=== PATIENT | male | born 1950 | race Caucasian/White ===

== ENCOUNTER 2022-10-29 15:31 | Outpatient (CLI) | payer MEDICARE, MEDICAID | END 2022-10-29 23:59 | disposition critical access hospital (66) | LOC: EMS 15:31 | DX: R62.7 Adult failure to thrive (principal); H54.7 Unspecified visual loss; Z59.1 Inadequate housing; Z60.2 Problems related to living alone | CPT/HCPCS: A0425; A0429 ==

== ENCOUNTER 2022-10-29 15:32 | Emergency (ER) | payer MEDICARE, MEDICAID ==
[2022-10-29 15:44] VITALS: BP 155/86
--- NOTE | 2022-10-29 15:45 | ED Physician Documentation ---
History of Present Illness - Stated complaint Stated Complaint: COLD - Chief complaint Chief Complaint: Exposure - History obtained from History obtained from: Patient, EMS - Additonal information Additional information: He spent the whole night outside and now feels generally sore just from laying on the ground and then he tried to get up an embankment. He has multiple scrapes all over from Ayana's and what not. Otherwise he has no complaints. Prehospital vital signs were unremarkable. PD PAST MEDICAL HISTORY - Present Medications Home Medications: Ambulatory Orders Medication Instructions Recorded Confirmed Cyclobenzaprine [Flexeril] 10 mg PO TID PRN #10 tablet 10/29/22 PD ED PE NORMAL - Vitals Vital signs reviewed: Yes (Mildly hypothermic) - General General: Alert and oriented X 3, No acute distress, Well developed/nourished - HEENT HEENT: Other (Edentulous) - Neck Neck: Supple, no meningeal sign, No bony TTP - Cardiac Cardiac: RRR, No murmur - Respiratory Respiratory: No respiratory distress, Clear bilaterally - Abdomen Abdomen: Non tender - Back Back: No CVA TTP, No spinal TTP - Derm Derm: Normal color, Warm and dry - Extremities Extremities: Other (Dupuytren's contractures of the left hand) - Neuro Neuro: Alert and oriented X 3, Normal speech Results - Vitals Vitals: Vital Signs - 24 hr 10/29/22 10/29/22 15:34 17:10 Temperature 34.8 C L 36.2 C L Heart Rate 72 Respiratory 16 Rate Blood Pressure 155/86 H O2 Saturation 98 PD Medical Decision Making - ED course ED course: 72-year-old gentleman with mild hypothermia presents by ambulance. His temperature normalized here and subsequently he was evaluated by social work and he wanted to go home. He has appropriate follow-up. Departure - Departure Disposition: Home, Self Care Clinical Impression: Hypothermia Condition: Good Record reviewed to determine appropriate education?: Yes Instructions: ED Hypothermia Tx Prescriptions: Cyclobenzaprine [Flexeril] 10 mg PO TID PRN #10 tablet PRN Reason: Spasms Comments: Follow-up with your social service coordinator on Saturday as scheduled. Return for new or worsening symptoms.
[2022-10-29] MEDS ORDERED: CYCLOBENZAPRINE 10 MG TABLET PO STA (17:22)
== END 2022-10-29 18:26 | disposition home or self-care (01) ==
LOC: EDUNIT# → ED 15:32
DX: T68.XXXA Hypothermia, initial encounter (principal)
CPT/HCPCS: 99283; 99284; A9270

== ENCOUNTER 2022-10-30 14:16 | Outpatient (CLI) | payer MEDICARE, MEDICAID | END 2022-10-30 23:59 | disposition critical access hospital (66) | LOC: EMS 14:16 | DX: R41.0 Disorientation, unspecified (principal); R53.1 Weakness; R62.7 Adult failure to thrive; Z59.48 Other specified lack of adequate food; Z59.1 Inadequate housing | CPT/HCPCS: A0425; A0429 ==

== ENCOUNTER 2022-10-30 14:45 | Observation (INO) | payer MEDICARE, MEDICAID ==
[2022-10-30] MEDS ORDERED: SODIUM CHLORIDE 0.9% 1,000 ML IV STA ×2 (15:48)
[2022-10-30 15:49] LABS: BASOPHILS # (AUTO) 0.1 10^3/uL (0.0-0.1); BASOPHILS % (AUTO) 0.7 %; EOSINOPHILS % (AUTO) 0.4 %; HCT - HEMATOCRIT 39.2 % (42.0-52.0); LYMPHOCYTES % (AUTO) 9.9 %; MEAN CORPUSCULAR HEMOGLOBIN 31.9 pg (27.0-31.0); MEAN CORPUSCULAR HGB CONC 33.2 g/dL (32.0-36.0); MEAN CORPUSCULAR VOLUME 96.3 fL (80.0-94.0); MONOCYTES # (AUTO) 1.2 10^3/uL (0.0-1.0); MONOCYTES % (AUTO) 11.3 %; NEUTROPHILS # (AUTO) 8.1 10^3/uL (1.5-6.6); NEUTROPHILS % (AUTO) 77.3 %; PLT - PLATELET COUNT 203 10^3/uL (130-450); RED BLOOD COUNT 4.07 10^6/uL (4.70-6.10); RED CELL DISTRIBUTION WIDTH 13.4 % (12.0-15.0); WHITE BLOOD COUNT 10.4 x10^3/uL (4.8-10.8)
--- NOTE | 2022-10-30 15:53 | ED Physician Documentation ---
History of Present Illness - Stated complaint Stated Complaint: FTT - Chief complaint Chief Complaint: General - History obtained from History obtained from: Patient, EMS, Caregiver - History of Present Illness Timing: Unknown Pain level max: 1 Pain level now: 1 - Additonal information Additional information: Patient is a 72-year-old male who lives at home. He apparently lives in an unheated shed and drinks from a Raquel bucket but states he has been doing this since 1984. He is legally blind and has a caregiver. He was found wandering outside yesterday and is mildly hypothermic. His caregiver dropped him off last night and when she returned to check on him today, found him on the ground with altered mental status. Review of Systems Constitutional: denies: Fever, Chills Nose: denies: Rhinorrhea / runny nose, Congestion Respiratory: denies: Cough GI: denies: Vomiting, Diarrhea Skin: denies: Rash Musculoskeletal: denies: Neck pain, Back pain Neurologic: denies: Headache PD PAST MEDICAL HISTORY - Past Medical History Past Medical History: No - Past Surgical History Past Surgical History: No - Present Medications Home Medications: Ambulatory Orders Medication Instructions Recorded Confirmed Cyclobenzaprine [Flexeril] 10 mg PO TID PRN #10 tablet 10/29/22 10/30/22 - Allergies Allergies/Adverse Reactions: Allergies Allergy/AdvReac Type Severity Reaction Status Date / Time No Known Drug Allergies Allergy Verified 10/30/22 15:05 - Living Situation Living Arrangement: reports: At home - Social History Does the pt have substance abuse?: No - Family History Family history: reports: Non contributory PD ED PE NORMAL - Vitals Vital signs reviewed: Yes - General General: No acute distress, Other (Alert, oriented to person only. Confused to time and place. He believes he is in [place]) - HEENT HEENT: Atraumatic, PERRL, EOMI, Moist mucous membranes - Neck Neck: Supple, no meningeal sign, No bony TTP - Cardiac Cardiac: RRR, Strong equal pulses - Respiratory Respiratory: No respiratory distress, Clear bilaterally - Abdomen Abdomen: Soft, Non tender, Non distended - Back Back: No CVA TTP, No spinal TTP - Derm Derm: Warm and dry - Extremities Extremities: Other (Abrasions to the bilateral hands, no signs of infection. Scaling to the bilateral feet, but no signs of infection.) - Neuro Neuro: bow stapler 2-12 intact, No motor deficit, No sensory deficit, Normal speech Eye Opening: Spontaneous Motor: Obeys Commands Verbal: Confused GCS Score: 14 - Psych Psych: Normal mood, Normal affect Results - Vitals Vitals: Vital Signs - 24 hr 10/30/22 10/30/22 10/30/22 15:06 15:44 17:10 Temperature 36.5 C Heart Rate 76 75 71 Respiratory 18 18 20 Rate Blood Pressure 150/100 H 151/71 H 162/82 H O2 Saturation 100 98 97 Oxygen O2 Source Room air - Labs Labs: Laboratory Tests 10/30/22 10/30/22 10/30/22 15:44 15:44 15:44 WBC 10.4 RBC 4.07 L Hgb 13.0 L Hct 39.2 L MCV 96.3 H MCH 31.9 H MCHC 33.2 RDW 13.4 Plt Count 203 MPV 11.0 Neut # (Auto) 8.1 H Lymph # (Auto) 1.0 L Carbon # (Auto) 1.2 H Eos # (Auto) 0.0 Baso # (Auto) 0.1 Absolute Nucleated RBC 0.00 Nucleated RBC % 0.0 Sodium 135 Potassium 3.9 Chloride 100 L Carbon Dioxide 21 Anion Gap 14.0 H BUN 36 H Creatinine 0.9 Estimated GFR (MDRD) 83 L Glucose 93 Calcium 9.6 Total Bilirubin 3.0 H AST 221 H ALT 59 Alkaline Phosphatase 45 Total Creatine Kinase Total Protein 7.5 Albumin 4.2 Globulin 3.3 Albumin/Globulin Ratio 1.3 Lipase 30 TSH 1.10 Salicylates < 6.0 Acetaminophen < 10 L Ethyl Alcohol < 5.0 SARS-CoV-2 (PCR) 10/30/22 10/30/22 15:44 15:50 WBC RBC Hgb Hct MCV MCH MCHC RDW Plt Count MPV Neut # (Auto) Lymph # (Auto) Carbon # (Auto) Eos # (Auto) Baso # (Auto) Absolute Nucleated RBC Nucleated RBC % Sodium Potassium Chloride Carbon Dioxide Anion Gap BUN Creatinine Estimated GFR (MDRD) Glucose Calcium Total Bilirubin AST ALT Alkaline Phosphatase Total Creatine Kinase 3387 H* Total Protein Albumin Globulin Albumin/Globulin Ratio Lipase TSH Salicylates Acetaminophen Ethyl Alcohol SARS-CoV-2 (PCR) NOT DETECTED - Rads (name of study) Head CT Radiology: Final report received, See rad report Cervical spine CT Radiology: Final report received, See rad report PD Medical Decision Making - ED course Complexity details: reviewed results, re-evaluated patient, considered differential, d/w patient, d/w road consultant ED course: 72-year-old male found down on the ground by his caregiver. CK of 3387. His CBC does not show any significant abnormalities other than mild anemia, hemoglobin 13.0. Chemistry reveals an elevated BUN to creatinine ratio, 36:0.9. Also mild elevation of his total bilirubin at 3.0 and mild AST elevation at 221. Urinalysis is consistent with dehydration. Positive ketones and concentrated urine. Tox screen is negative. COVID is negative. No acute findings on head CT or cervical spine CT. We will admit for rhabdomyolysis, altered mental status. Discussed the case with Dr. Weber, hospitalist who accepts. Social work was also consulted regarding his living situation. Departure - Departure Disposition: 66 [facility] DC/Xfer Clinical Impression: Metabolic encephalopathy, Legally blind Rhabdomyolysis Qualifiers: Rhabdomyolysis type: non-traumatic Qualified Code(s): M62.82 - Rhabdomyolysis AMS (altered mental status) Qualifiers: Altered mental status type: disorientation Qualified Code(s): R41.0 - Disorientation, unspecified Condition: Stable Discharge Date/Time: 10/30/22 18:04
[2022-10-30 16:10] LABS: ACETAMINOPHEN < 10 ug/mL (10-30); ALBUMIN 4.2 g/dL (3.2-5.5); ALBUMIN/GLOBULIN RATIO 1.3 (1.0-2.2); ALKALINE PHOSPHATASE 45 IU/L (42-121); ALT ALANINE AMINOTRANSFERASE 59 IU/L (10-60); AST ASPARTATE AMINOTRANSFERASE 221 IU/L (10-42); BUN - BLOOD UREA NITROGEN 36 mg/dL (6-20); CALCIUM 9.6 mg/dL (8.5-10.3); CARBON DIOXIDE - CO2 21 mmol/L (21-32); CHLORIDE 100 mmol/L (101-111); CREATININE 0.9 mg/dL (0.6-1.2); ETOH - ETHANOL < 5.0 mg/dL; GFR - MDRD 83 (>89); GLUCOSE 93 mg/dL (70-100); LIPASE 30 U/L (22-51); POTASSIUM 3.9 mmol/L (3.5-5.0); SALICYLATE < 6.0 mg/dL; SODIUM 135 mmol/L (135-145); TOTAL PROTEIN 7.5 g/dL (6.7-8.2)
--- NOTE | 2022-10-30 16:50 | CT Report ---
PROCEDURE: HEAD WO INDICATIONS: fall, poss head/neck inj TECHNIQUE: Noncontrast 4.5 mm thick angled axial sections acquired from the foramen magnum to the vertex. For r adiation dose reduction, the following was used: automated exposure control, adjustment of mA and/or kV according to patient size. COMPARISON: None. FINDINGS: Image quality: There is motion artifact CSF spaces: Basal cisterns are patent. Lateral ventricles are symmetric. Volume: Vascular calcifications. Periventricular white matter disease is commonly seen with chronic m icroangiopathy. Volume loss is present. These findings are moderate. Brain: No acute intracranial hemorrhage is identified. There may be a small area of encephalomalacia in the left cerebellum. No large area garcia-white loss otherwise. Craniofacial structures: No displaced fracture. Sinuses are clear. Orbits are intact. Partially seen sequelae of dental disease. IMPRESSION: No acute intracranial abnormality. Suspected chronic findings as above. If there is concern for paren chymal pathology, consider further evaluation with MRI. Reviewed by: Griffin Vidal MD on 10/30/2022 4:48 PM PST Approved by: Griffin Vidal MD on 10/30/2022 4:48 PM PST Station ID: [id number]
--- NOTE | 2022-10-30 16:52 | CT Report ---
PROCEDURE: CERVICAL SPINE WO INDICATIONS: fall, poss head/neck inj TECHNIQUE: Noncontrast 3 mm thick sections acquired from the skull base to the T4 level. Sagittal and coronal r eformats were then constructed. For radiation dose reduction, the following was used: automated exp osure control, adjustment of mA and/or kV according to patient size. COMPARISON: None. FINDINGS: Image quality: Good Bones: Mild to moderate degenerative changes. No traumatic malalignment. Vertebral body heights are w ell-maintained. Soft tissues: Normal prevertebral soft tissues. IMPRESSION: No acute fracture or traumatic subluxation of the cervical spine. Mild to moderate degenerative arzate es. If there is high concern for further derangement, consider MRI evaluation. Reviewed by: Griffin Vidal MD on 10/30/2022 4:51 PM PST Approved by: Griffin Vidal MD on 10/30/2022 4:51 PM PST Station ID: [id number]
[2022-10-30] MEDS ORDERED: ONDANSETRON 4 MG/2 ML VIAL IVP PRN (17:11)
[2022-10-30] MEDS ORDERED: ACETAMINOPHEN 325 MG TABLET PO PRN (17:11)
[2022-10-30] MEDS ORDERED: SODIUM CHLORIDE FLUSH 0.9% 10 ML SYRINGE IVP PRN (17:11)
--- NOTE | 2022-10-30 17:53 | HISTORY & PHYSICAL EXAMINATION ---
Chief Complaint - Chief Complaint Chief Complaint: Found down by caregiver History of Present Illness - Admitted From Admitted From:: ED - History Obtained From History obtained from: ED provider - History of Present Illness HPI Comment/Other: This is a 72-year-old male who has a history of being legally blind, he lives in a shack and drinks Raquel since 1984. He has a caregiver. Yesterday he was in the ER because of hypothermia down to 34.8. He was rewarmed and he was able to be discharged. He was taken home by the caregiver and dropped off. When the caregiver arrived this morning she found him on the ground and he was confused. He was brought in to the ED. Today he is not hypothermic. His vital signs are stable. He is confused, he thinks he is in [place] and that it is 2023. His labs came back showing CK 3380, mild pre-renal azotemia and his CT head and neck were scanned and no trauma or acute abnormality seen. Prior to this, [facility] taking him in for respite care. The ED provider reached out to me on the Hospitalist Team, and we discussed his case and his management. The patient will be placed in Observation status for treating rhabdomyolysis and mild volume depletion. We will also evaluate him for possible causes of syncope and altered mental status. Because the patient is confused, he cannot make medical decisions, therefore his CODE STATUS by default will be Full Code. History - Past Medical History Cardiovascular: reports: None Respiratory: reports: None Neuro: reports: Other (legally blind) Endocrine/Autoimmune: reports: None GI: reports: None : reports: None HEENT: reports: Other (edentulous) Psych: reports: None Musculoskeletal: reports: None Derm: reports: None - Past Surgical History Other past surgical history: Unknown - Family & Social History Living arrangement: At home Living Situation: Alone Social History Notes: He lives alone in a shack, unknown how he gets his heat. He reportedly drinks Raquel, unknown if he has plumbing or running water. H is history of cigarette use, alcohol use and illicit drug use is not known. - Substance History Use: Uses substance without health or social issues: Other (Unknown) Meds/Allgy - Home Medications Home Medications: Ambulatory Orders Medication Instructions Recorded Confirmed Cyclobenzaprine [Flexeril] 10 mg PO TID PRN #10 tablet 10/29/22 10/30/22 - Allergies Allergies/Adverse Reactions: Allergies Allergy/AdvReac Type Severity Reaction Status Date / Time No Known Drug Allergies Allergy Verified 10/30/22 15:05 Review of Systems - All Other Systems All Other Systems: reports: Other (Only information is as per HPI, the patient is too confused, does not give any details or sx complaints) Exam - Vital Signs Vital Signs: Vital Signs x48h Temp Pulse Resp BP Pulse Ox 10/30/22 17:10 71 20 162/82 H 97 10/30/22 15:44 75 18 151/71 H 98 10/30/22 15:06 36.5 C 76 18 150/100 H 100 - Physical Exam General Appearance: positive: No acute distress, Lethargic (He moves slightly when he is touched or by calling his name, does not awaken to communicate) Eyes Bilateral: positive: No lid inflammation ENT: positive: Dry mucous membranes, Other (edentulous) Neck: positive: Nml inspection Respiratory: positive: No respiratory distress, Breath sounds nml Cardiovascular: positive: Regular rate & rhythm, No murmur Abdomen: positive: Non-tender, Nml bowel sounds, No distention Skin: positive: Warm, Dry Extremities: positive: Non-tender, No pedal edema Neurologic/Psychiatric: positive: Other (Obtunded, moves all extrem spontaneously. Is legally blind.) Conclusion/Plan - Problem List (1) Rhabdomyolysis Conclusion/Plan: Related to being found down on the ground. Unknown details. Plan: IV saline hydration Follow CK daily to assure decreasing Will you evaluate for causes of syncope: Check orthostatic vital signs, monitor on telemetry Qualifiers: Rhabdomyolysis type: non-traumatic Qualified Code(s): M62.82 - Rhabdomyolysis (2) AMS (altered mental status) Conclusion/Plan: Cause for his confusion could be drowsiness from sleep meds (he told his RN he takes Tylenol PM every night), or from hypotension and hypoperfusion caused by dehydration. There does not seem to be an infection as the cause of his confusion It does not appear to be related to illicit drugs since his drug screen was negative Plan: Follow clinically, adjusting management as needed No sleeping meds, he is already too sleepy and sleepiness could be why he fell at home and could not get up Qualifiers: Altered mental status type: disorientation Qualified Code(s): R41.0 - Dis orientation, unspecified (3) Legally blind Conclusion/Plan: As per Hx - Lab Results Fish Bones: 10/31/22 07:16 10/31/22 07:16
[2022-10-30] MEDS ORDERED: SODIUM CHLORIDE 0.9% 1,000 ML IV SCH (18:00)
[2022-10-30 18:06] LABS: MUDS CUTOFF CONCENTRATIONS CUTOFF CONC BELOW:
[2022-10-30 18:10] LABS: GLUCOSE, URINE (UA) NEGATIVE (NEGATIVE); KETONES,URINE (UA) 40 mg/dL (NEGATIVE); LEUKOCYTE ESTERASE, URINE NEGATIVE (NEGATIVE); NITRITE,URINE NEGATIVE (NEGATIVE); OCCULT BLOOD,URINE MODERATE (NEGATIVE); PROTEIN,URINE 30 mg/dL (NEGATIVE); UROBILINOGEN,URINE 0.2 (NORMAL) E.U./dL (NORMAL)
[2022-10-30 18:24] LABS: AMPHETAMINE SCREEN,URINE NEGATIVE (NEGATIVE); BARBITURATE SCREEN,UR NEGATIVE (NEGATIVE); BENZODIAZEPINES SCREEN, URINE NEGATIVE (NEGATIVE); BILIRUBIN,URINE NEGATIVE (NEGATIVE); CLARITY,URINE CLEAR (CLEAR); COCAINE SCREEN URINE NEGATIVE (NEGATIVE); ICTOTEST,URINE NEGATIVE; METHADONE SCREEN, URINE NEGATIVE (NEGATIVE); METHAMPHETAMINES SCREEN, URINE NEGATIVE (NEGATIVE); OPIATE SCREEN, URINE NEGATIVE (NEGATIVE); OXYCODONE SCREEN, URINE NEGATIVE (NEGATIVE); PROPOXYPHENE SCREEN, URINE NEGATIVE (NEGATIVE); THC CANNABINOID SCREEN, URINE NEGATIVE (NEGATIVE); TRICYCLIC ANTIDEPRESSANT,URINE NEGATIVE (NEGATIVE)
[2022-10-30 18:29] LABS: BACTERIA,URINE None Seen /HPF (None Seen); CASTS, URINE 3-5 Hyaline Casts /LPF; MUCUS,URINE Few Strands; RBC,URINE 0-5 /HPF (0-5); SQUAMOUS EPITHELIAL CELL,UR NONE SEEN (<= Few); WBC,URINE 0-3 /HPF (0-3)
[2022-10-30] MEDS: SODIUM CHLORIDE 0.9% 1,000 ML IV SCH (20:27)
[2022-10-30] MEDS: SODIUM CHLORIDE FLUSH 0.9% 10 ML SYRINGE IVP SCH (20:27)
[2022-10-31] MEDS: SODIUM CHLORIDE 0.9% 1,000 ML IV SCH ×3 (05:45→16:49)
[2022-10-31 07:39] LABS: BASOPHILS # (AUTO) 0.1 10^3/uL (0.0-0.1); BASOPHILS % (AUTO) 1.1 %; EOSINOPHILS # (AUTO) 0.1 10^3/uL (0.0-0.7); EOSINOPHILS % (AUTO) 1.6 %; HCT - HEMATOCRIT 32.8 % (42.0-52.0); HGB - HEMOGLOBIN 11.1 g/dL (14.0-18.0); LYMPHOCYTES # (AUTO) 1.1 10^3/uL (1.5-3.5); LYMPHOCYTES % (AUTO) 13.3 %; MEAN CORPUSCULAR HEMOGLOBIN 32.6 pg (27.0-31.0); MEAN CORPUSCULAR HGB CONC 33.8 g/dL (32.0-36.0); MEAN CORPUSCULAR VOLUME 96.5 fL (80.0-94.0); MONOCYTES % (AUTO) 11.3 %; NEUTROPHILS # (AUTO) 6.1 10^3/uL (1.5-6.6); NEUTROPHILS % (AUTO) 72.2 %; PLT - PLATELET COUNT 184 10^3/uL (130-450); RED CELL DISTRIBUTION WIDTH 13.8 % (12.0-15.0); WHITE BLOOD COUNT 8.5 x10^3/uL (4.8-10.8)
[2022-10-31 07:52] LABS: CALCIUM 8.8 mg/dL (8.5-10.3); CREATININE 0.7 mg/dL (0.6-1.2); MAGNESIUM 2.1 mg/dL (1.7-2.8); PHOSPHORUS 2.9 mg/dL (2.5-4.6); POTASSIUM 3.7 mmol/L (3.5-5.0)
[2022-10-31] MEDS: SODIUM CHLORIDE FLUSH 0.9% 10 ML SYRINGE IVP SCH ×2 (14:05→16:21)
--- NOTE | 2022-10-31 17:25 | PHARMACY PROGRESS NOTE ---
- Best Possible Medication History Admit Date and Time: 10/30/22 1711 Processed by: Pharmacy Medication History completed: Yes Patient Interview: Pt unable to participate Secondary Source(s): Caregiver (pt confused. unable to give accurate record and was telling all sorts of stories. He did, however, was able to tell me that he takes acetaminophen PM nightly, which was confirmed with caregiver.), Insurance records As the person ultimately responsible for medication therapy, providers are able to order a medication from an existing home medication list in [facility] via the "Reconcile Routine" prior to Confirmation of that medication by program support clerk. Such practice is discouraged except when the physician, in their clinical judgment, deems that a medical need exists for a medication without regard to previous use.
--- NOTE | 2022-10-31 19:40 | PROVIDER PROGRESS NOTE ---
Assessment/Plan - Problem List (1) Rhabdomyolysis Qualifiers: Qualified Code(s): M62.82 - Rhabdomyolysis Assessment/Plan: Related to being found down on the ground. The details were learned from caregiver Nubia, who is also his DPOA, she is at bedside today: He went out of the house off the porch (which she is not supposed to do because firewood is right on his porch), to get firewood from a newly fallen tree. He tripped and fell. He could not find his way home and was crawling around the cabin, hoping to "run into his front porch". That was the day that he slept outside and Nubia found him and brought him to the ER and they found him to be hypothermic. The next day when she found him in the morning, he had fallen out of bed, was too weak to get up, was confused and speaking gibberish. She made a video of this and showed me that video today. The video also shows the poorly kempt status of his house (see #6). Plan: IV saline hydration to continue, but since he is awake today and able to orally hydrate better, will decrease iv rate Follow CK to assure decreasing Qualifiers: Rhabdomyolysis type: non-traumatic Qualified Code(s): M62.82 - Rhabdomyolysis (3) Fall at home We ordered evaluation for causes of syncope: His orthostatic vital signs have been stable, monitoring on telemetry has shown no dysrhythmias. Plan: I suspect the fall occurred from his blindness and being too weak and sleepy or confused (poss from Tylenol pm use) We will order PT to evaluate (4) Legally blind This is from glaucoma. Eye glasses helped a bit but he lost his glasses. (5) Glaucoma Plan: Restart eye drops (6) Poor personal hygiene (R46.0) The caregiver Nubia gave me history today: Patient has lived in an unfinished home since 1984, at his choice. It has no forced-air heat, it is heated with a wood-burning stove and he cooks on that. It is no running water. He has an outdoor latrine but she has set up for him to have an indoor bedside commode (over the last 2 years since she has known him). He keeps his boots on all the time, he never takes them off, he sleeps with them. Once when he was taking a shower with the boots off, she saw how bad his toes and feet are and one of the toes just fell off in the shower. On exam he has multiple excoriations, bruises in different stages of healing, dirt under his fingernails, is poorly kempt (he only takes a shower about once a month). He makes his own meals which mostly includes gumbo which he then eats multiple times a day until he remakes it. She also brings him food occasionally. He has the interior of his house "memorized" and he can maneuver in it, even being legally blind. He is not supposed to wander outside. The video shows the house has caked mud and feces on the floors, from [id number], on top of carpeted floors. There are old bottles, and other garbage strewn across the floor of this one-room "cabin". Plan: We will order OT evaluation for cognitive eval Recommendation is not to return back to that home without increased caregiver support (7) AMS (altered mental status) Resolved Cause for his confusion was probably drowsiness from sleep meds (he told his RN he takes Tylenol PM every night), or from hypotension and hypoperfusion caused by dehydration. There was no source of an infection found as the cause of his confusion It does not appear to be related to illicit drugs since his drug screen was negative Plan: No sleeping meds to be given Qualifiers: Altered mental status type: disorientation Qualified Code(s): R41.0 - Disorientation, unspecified - Current Meds Current Meds: Current Medications Generic Name Dose Route Start Last Admin Trade Name Augustin PRN Reason Stop Dose Admin Sodium Chloride 1,000 mls @ 125 mls/hr 10/30/22 21:00 10/31/22 16:49 Normal Saline 0.9% IV 125 mls/hr .Q8H SALVADOR Administration Sodium Chloride 10 ml 10/31/22 01:00 10/31/22 16:21 Sodium Chloride Flush 0.9% 10 Ml Syringe IVP Not Given 0100,0900,1700 SALVADOR - Lab Result Fish Bone Diagrams: 10/31/22 07:16 10/31/22 07:16 - Additional Planning My Orders: My Active Orders 10/30/22 19:52 Miscellaenous Nursing Order [RC] QSHIFT 10/30/22 21:00 Sodium Chloride 0.9% [Normal Saline 0.9%] 1,000 ml IV 125 mls/hr 10/31/22 Evaluate and Treat OT [OT] Routine 10/31/22 01:00 Sodium Chloride Flush 0.9% [Normal Saline Flush 0.9%] 10 ml IVP 0100,0900,1700 10/31/22 08:00 Orthostatic [Vital Signs - Orthostatic] [RC] DAILY Subjective - Subjective Patient Reports: Other (He is much more awake, alert and oriented x3. He remembers bits and pieces of the last 48 hours) Objective Vital Signs: Vital Signs - 24 hr 10/30/22 10/31/22 10/31/22 19:49 00:36 05:15 Temperature 37.0 C 36.8 C 36.6 C Heart Rate [ 68 88 73 Brachial] Respiratory 16 16 16 Rate Blood Pressure 157/78 H 154/61 H 159/70 H [Right Brachial artery] O2 Saturation 98 96 96 10/31/22 10/31/22 10/31/22 07:31 12:03 12:04 Temperature 36.6 C 36.9 C Heart Rate [ 79 79 Brachial] Respiratory 19 17 Rate Blood Pressure 157/53 H 178/65 H 178/90 H [Right Brachial artery] O2 Saturation 97 96 10/31/22 15:42 Temperature 36.3 C L Heart Rate [ 66 Brachial] Respiratory 18 Rate Blood Pressure 153/76 H [Right Brachial artery] O2 Saturation 97 Oxygen O2 Source Room air I&O (Last 24 Hrs): Intake and Output Totals x24h 10/29/22 10/30/22 10/31/22 23:59 23:59 23:59 Intake Total 1205 4693.333 Balance 1205 4693.333 General: Alert, Oriented x3, Other (Disheveled. Has dark [place] on scalp and many parts of his skin skin of his extremities) HEENT: Mucous membr. moist/pink, Other (Edentulous.) Neck: Supple, No JVD Neuro: Alert, Non Focal Cardiovascular: Regular rate, No murmurs Respiratory: No respiratory distress, Breath sounds nml Abdomen: Normal bowel sounds, Soft, No tenderness Extremities: No clubbing, No edema, Other (Feet and toes scaling skin and dried dirt) Skin: No rashes (Multiple excoriations of trunk and extremities, numerous excoriations and scratches of upper extremities) - Results Results: Laboratory Results WBC 8.5 x10^3/uL (4.8-10.8) 10/31/22 07:16 RBC 3.40 10^6/uL (4.70-6.10) L 10/31/22 07:16 Hgb 11.1 g/dL (14.0-18.0) L 10/31/22 07:16 Hct 32.8 % (42.0-52.0) L 10/31/22 07:16 MCV 96.5 fL (80.0-94.0) H 10/31/22 07:16 MCH 32.6 pg (27.0-31.0) H 10/31/22 07:16 MCHC 33.8 g/dL (32.0-36.0) 10/31/22 07:16 RDW 13.8 % (12.0-15.0) 10/31/22 07:16 Plt Count 184 10^3/uL (130-450) 10/31/22 07:16 MPV 11.0 fL (7.4-11.4) 10/31/22 07:16 Neut # (Auto) 6.1 10^3/uL (1.5-6.6) 10/31/22 07:16 Lymph # (Auto) 1.1 10^3/uL (1.5-3.5) L 10/31/22 07:16 [place] # (Auto) 1.0 10^3/uL (0.0-1.0) 10/31/22 07:16 Eos # (Auto) 0.1 10^3/uL (0.0-0.7) 10/31/22 07:16 Baso # (Auto) 0.1 10^3/uL (0.0-0.1) 10/31/22 07:16 Absolute Nucleated RBC 0.00 x10^3/uL 10/31/22 07:16 Nucleated RBC % 0.0 /100WBC 10/31/22 07:16 Sodium 140 mmol/L (135-145) 10/31/22 07:16 Potassium 3.7 mmol/L (3.5-5.0) 10/31/22 07:16 Chloride 108 mmol/L (101-111) 10/31/22 07:16 Carbon Dioxide 20 mmol/L (21-32) L 10/31/22 07:16 Anion Gap 12.0 (6-13) 10/31/22 07:16 BUN 27 mg/dL (6-20) H 10/31/22 07:16 Creatinine 0.7 mg/dL (0.6-1.2) 10/31/22 07:16 Estimated GFR (MDRD) 111 (>89) 10/31/22 07:16 Glucose 79 mg/dL (70-100) 10/31/22 07:16 Calcium 8.8 mg/dL (8.5-10.3) 10/31/22 07:16 Phosphorus 2.9 mg/dL (2.5-4.6) 10/31/22 07:16 Magnesium 2.1 mg/dL (1.7-2.8) 10/31/22 07:16 Total Bilirubin 3.0 mg/dL (0.2-1.0) H 10/30/22 15:44 AST 221 IU/L (10-42) H 10/30/22 15:44 ALT 59 IU/L (10-60) 10/30/22 15:44 Alkaline Phosphatase 45 IU/L (42-121) 10/30/22 15:44 Total Creatine Kinase 1522 IU/L (22-269) H* 10/31/22 07:16 Total Protein 7.5 g/dL (6.7-8.2) 10/30/22 15:44 Albumin 4.2 g/dL (3.2-5.5) 10/30/22 15:44 Globulin 3.3 g/dL (2.1-4.2) 10/30/22 15:44 Albumin/Globulin Ratio 1.3 (1.0-2.2) 10/30/22 15:44 Lipase 30 U/L (22-51) 10/30/22 15:44 TSH 1.10 uIU/mL (0.34-5.60) 10/30/22 15:44 Urine Color YELLOW 10/30/22 17:50 Urine Clarity CLEAR (CLEAR) 10/30/22 17:50 Urine pH 6.0 PH (5.0-7.5) 10/30/22 17:50 Ur Specific [place] >=1.030 (1.002-1.030) H 10/30/22 17:50 Urine Protein 30 mg/dL (NEGATIVE) H 10/30/22 17:50 Urine Glucose (UA) NEGATIVE mg/dL (NEGATIVE) 10/30/22 17:50 Urine Ketones 40 mg/dL (NEGATIVE) H 10/30/22 17:50 Urine Occult Blood MODERATE (NEGATIVE) H 10/30/22 17:50 Urine Nitrite NEGATIVE (NEGATIVE) 10/30/22 17:50 Urine Bilirubin NEGATIVE (NEGATIVE) 10/30/22 17:50 Urine Urobilinogen 0.2 (NORMAL) E.U./dL (NORMAL) 10/30/22 17:50 Ur Leukocyte Esterase NEGATIVE (NEGATIVE) 10/30/22 17:50 Urine RBC 0-5 /HPF (0-5) 10/30/22 17:50 Urine WBC 0-3 /HPF (0-3) 10/30/22 17:50 Ur Squamous Epith Cells NONE SEEN (<= Few) 10/30/22 17:50 Urine Bacteria None Seen /HPF (None Seen) 10/30/22 17:50 Urine Casts 3-5 Hyaline Casts /LPF 10/30/22 17:50 Urine Mucus Few Strands 10/30/22 17:50 Ur Microscopic Review INDICATED 10/30/22 17:50 Urine Culture Comments NOT INDICATED 10/30/22 17:50 Salicylates < 6.0 mg/dL 10/30/22 15:44 Urine Opiates Screen NEGATIVE (NEGATIVE) 10/30/22 17:50 Ur Oxycodone Screen NEGATIVE (NEGATIVE) 10/30/22 17:50 Urine Methadone Screen NEGATIVE (NEGATIVE) 10/30/22 17:50 Ur Propoxyphene Screen NEGATIVE (NEGATIVE) 10/30/22 17:50 Acetaminophen < 10 ug/mL (10-30) L 10/30/22 15:44 Ur Barbiturates Screen NEGATIVE (NEGATIVE) 10/30/22 17:50 Ur Tricyclics Screen NEGATIVE (NEGATIVE) 10/30/22 17:50 Ur Phencyclidine Scrn NEGATIVE (NEGATIVE) 10/30/22 17:50 Ur Amphetamine Screen NEGATIVE (NEGATIVE) 10/30/22 17:50 U Methamphetamines Scrn NEGATIVE (NEGATIVE) 10/30/22 17:50 U Benzodiazepines Scrn NEGATIVE (NEGATIVE) 10/30/22 17:50 Urine Cocaine Screen NEGATIVE (NEGATIVE) 10/30/22 17:50 U Cannabinoids Screen NEGATIVE (NEGATIVE) 10/30/22 17:50 Ethyl Alcohol < 5.0 mg/dL 10/30/22 15:44 SARS-CoV-2 (PCR) NOT DETECTED 10/30/22 15:50
[2022-10-31] MEDS: LATANOPROST 0.005% OPHTH DROPS EACHEYE SCH (21:52)
[2022-11-01] MEDS: SODIUM CHLORIDE FLUSH 0.9% 10 ML SYRINGE IVP SCH ×4 (00:50→21:14)
[2022-11-01] MEDS: SODIUM CHLORIDE 0.9% 1,000 ML IV SCH ×4 (01:01→18:57)
[2022-11-01] MEDS: PRENATAL VITAMIN TABLET PO SCH (11:34)
--- NOTE | 2022-11-01 13:27 | PROVIDER PROGRESS NOTE ---
Assessment/Plan - Problem List (1) Rhabdomyolysis Qualifiers: Qualified Code(s): M62.82 - Rhabdomyolysis Assessment/Plan: Related to being found down on the ground. The details were learned from caregiver Nubia, who is also his DPOA: He went out of the house off the porch ( which she is not supposed to do because firewood is right on his porch), to get firewood from a newly fallen tree. He tripped and fell. He could not find his way home and was crawling around the cabin, hoping to "run into his front porch". That was the day that he slept outside and Nubia found him and brought him to the ER and they found him to be hypothermic, warmed him and Dch him. The next day when she found him in the morning, he had fallen out of bed, was too weak to get up, was confused and speaking gibberish. She made a video of this and showed me that video. The video also shows the poorly kempt status of his house (see #6). Labs were reviewed. His CK has decreased from 3380 to 1500, no CK done today. Plan: IV saline hydration to finish after today, Follow CK in a.m. Planning for probable discharge tomorrow Qualifiers: Rhabdomyolysis type: non-traumatic Qualified Code(s): M62.82 - Rhabdomyolysis (3) Fall at home We ordered evaluation for causes of syncope: His orthostatic vital signs have been stable, monitoring on telemetry has shown no dysrhythmias. PT found that he is very unstable with walking although he was able to get good balance using a walker, a walker has been prescribed for him to take art DC Plan: I suspect the fall occurred from his blindness and being too weak and sleepy or confused (poss from Tylenol pm use) (4) Legally blind This is from glaucoma. Eye glasses helped a bit but he lost his glasses. (5) Glaucoma Plan: Restart eye drops (6) Poor personal hygiene (R46.0) The caregiver Nubia gave me his story. Patient has lived in an unfinished home since 1984, at his choice. It has no forced-air heat, it is heated with a wood- burning stove and he cooks on that. It has no running water. He has an outdoor latrine but she has set up for him to have an indoor bedside commode (over the last 2 years since she has known him). He keeps his boots on all the time, he never takes them off, he sleeps with them. Once when he was taking a shower with the boots off, she saw how bad his toes and feet are and one of the toes just fell off in the shower. On exam he has multiple excoriations, bruises in different stages of healing, dirt under his fingernails, is poorly kempt (he only takes a shower "when he is stinky", he told me today). He makes his own meals which mostly includes gumbo which he then eats multiple times a day until he remakes it. She also brings him food occasionally. He has the interior of his house "memorized" and he can maneuver in it, even being legally blind. He is not supposed to wander outside. The video shows the house has caked mud and feces on top of the carpeted floor, from [id number]. There are old bottles, and other garbage strewn across the floor of this one-room "cabin". Cognit eval was done by OT yesterday and he scored very well. Plan: Shower ordered and I discussed importance of better cleanliness with pt today. (7) AMS (altered mental status) Resolved Cause for his confusion was probably drowsiness from sleep meds (he told his RN he takes Tylenol PM every night), or from hypotension and hypoperfusion caused by dehydration. There was no source of an infection found as the cause of his confusion and drug screen was negative Plan: No sleeping meds to be given Qualifiers: Altered mental status type: disorientation Qualified Code(s): R41.0 - Dis orientation, unspecified - Current Meds Current Meds: Current Medications Generic Name Dose Route Start Last Admin Trade Name Freq PRN Reason Stop Dose Admin Sodium Chloride 1,000 mls @ 40 mls/hr 11/01/22 12:38 11/01/22 13:04 Normal Saline 0.9% IV 11/01/22 23:00 Not Given .Q25H SALVADOR Latanoprost 1 drops 10/31/22 21:00 10/31/22 21:52 Latanoprost 0.005% Ophth Drops EACHEYE 1 drops HS SALVADOR Administration Multivit/Folic Acid/Iron 1 tab 11/01/22 12:00 11/01/22 11:34 Vitamin Tablet PO 1 tab DAILYWM SALVADOR Administration Sodium Chloride 10 ml 10/31/22 01:00 11/01/22 09:31 Sodium Chloride Flush 0.9% 10 Ml Syringe IVP 10 ml 0100,0900,1700 [facility] Administration - Lab Result Fish Bone Diagrams: 10/31/22 07:16 10/31/22 07:16 - Additional Planning My Orders: My Active Orders 10/31/22 21:00 Latanoprost 0.005% Ophth Drops [Xalatan Ophth Drops] 1 drops EACHEYE HS 11/01/22 12:00 Vitamin [Trinatal Rx 1] 1 tab PO DAILYWM 11/01/22 12:38 Sodium Chloride 0.9% [Normal Saline 0.9%] 1,000 ml IV 40 mls/hr 11/01/22 13:23 Shower [RC] ONCE 11/01/22 13:24 Miscellaenous Nursing Order [RC] ONCE 11/02/22 05:00 BMP - BASIC METABOLIC PANEL [CHEM] DAILYLAB CK- CREATINE KINASE [CHEM] DAILYLAB Subjective - Subjective Patient Reports: Feeling Better, No Complaints Objective Vital Signs: Vital Signs - 24 hr 10/31/22 11/01/22 11/01/22 15:42 01:07 07:42 Temperature 36.3 C L 36.9 C 36.8 C Heart Rate [ 66 70 67 Brachial] Respiratory 18 18 18 Rate Blood Pressure 153/64 H [Left Brachial artery] Blood Pressure 153/76 H 166/74 H [Right Brachial artery] O2 Saturation 97 96 99 Oxygen O2 Source Room air I&O (Last 24 Hrs): Intake and Output Totals x24h 10/30/22 10/31/22 11/01/22 23:59 23:59 23:59 Intake Total 1205 5193.333 3112.5 Output Total 1000 Balance 1205 5193.333 2112.5 General: Alert, Oriented x3, No acute distress, Other (Disheveled) HEENT: Mucous membr. moist/pink, Other (Edentulous. Dried dirt seen on top of scalp.) Neck: Supple Neuro: Alert, Non Focal Cardiovascular: Regular rate, No murmurs Respiratory: No respiratory distress, Breath sounds nml Abdomen: Normal bowel sounds, Soft, No tenderness Extremities: No clubbing, No edema Skin: No rashes (Multiple excoriations, bruises and skin of feet and toes is correct and has dried dirt) - Results Results: Laboratory Results WBC 8.5 x10^3/uL (4.8-10.8) 10/31/22 07:16 RBC 3.40 10^6/uL (4.70-6.10) L 10/31/22 07:16 Hgb 11.1 g/dL (14.0-18.0) L 10/31/22 07:16 Hct 32.8 % (42.0-52.0) L 10/31/22 07:16 MCV 96.5 fL (80.0-94.0) H 10/31/22 07:16 MCH 32.6 pg (27.0-31.0) H 10/31/22 07:16 MCHC 33.8 g/dL (32.0-36.0) 10/31/22 07:16 RDW 13.8 % (12.0-15.0) 10/31/22 07:16 Plt Count 184 10^3/uL (130-450) 10/31/22 07:16 MPV 11.0 fL (7.4-11.4) 10/31/22 07:16 Neut # (Auto) 6.1 10^3/uL (1.5-6.6) 10/31/22 07:16 Lymph # (Auto) 1.1 10^3/uL (1.5-3.5) L 10/31/22 07:16 [place] # (Auto) 1.0 10^3/uL (0.0-1.0) 10/31/22 07:16 Eos # (Auto) 0.1 10^3/uL (0.0-0.7) 10/31/22 07:16 Baso # (Auto) 0.1 10^3/uL (0.0-0.1) 10/31/22 07:16 Absolute Nucleated RBC 0.00 x10^3/uL 10/31/22 07:16 Nucleated RBC % 0.0 /100WBC 10/31/22 07:16 Sodium 140 mmol/L (135-145) 10/31/22 07:16 Potassium 3.7 mmol/L (3.5-5.0) 10/31/22 07:16 Chloride 108 mmol/L (101-111) 10/31/22 07:16 Carbon Dioxide 20 mmol/L (21-32) L 10/31/22 07:16 Anion Gap 12.0 (6-13) 10/31/22 07:16 BUN 27 mg/dL (6-20) H 10/31/22 07:16 Creatinine 0.7 mg/dL (0.6-1.2) 10/31/22 07:16 Estimated GFR (MDRD) 111 (>89) 10/31/22 07:16 Glucose 79 mg/dL (70-100) 10/31/22 07:16 Calcium 8.8 mg/dL (8.5-10.3) 10/31/22 07:16 Phosphorus 2.9 mg/dL (2.5-4.6) 10/31/22 07:16 Magnesium 2.1 mg/dL (1.7-2.8) 10/31/22 07:16 Total Bilirubin 3.0 mg/dL (0.2-1.0) H 10/30/22 15:44 AST 221 IU/L (10-42) H 10/30/22 15:44 ALT 59 IU/L (10-60) 10/30/22 15:44 Alkaline Phosphatase 45 IU/L (42-121) 10/30/22 15:44 Total Creatine Kinase 1522 IU/L (22-269) H* 10/31/22 07:16 Total Protein 7.5 g/dL (6.7-8.2) 10/30/22 15:44 Albumin 4.2 g/dL (3.2-5.5) 10/30/22 15:44 Globulin 3.3 g/dL (2.1-4.2) 10/30/22 15:44 Albumin/Globulin Ratio 1.3 (1.0-2.2) 10/30/22 15:44 Lipase 30 U/L (22-51) 10/30/22 15:44 TSH 1.10 uIU/mL (0.34-5.60) 10/30/22 15:44 Urine Color YELLOW 10/30/22 17:50 Urine Clarity CLEAR (CLEAR) 10/30/22 17:50 Urine pH 6.0 PH (5.0-7.5) 10/30/22 17:50 Ur Specific [place] >=1.030 (1.002-1.030) H 10/30/22 17:50 Urine Protein 30 mg/dL (NEGATIVE) H 10/30/22 17:50 Urine Glucose (UA) NEGATIVE mg/dL (NEGATIVE) 10/30/22 17:50 Urine Ketones 40 mg/dL (NEGATIVE) H 10/30/22 17:50 Urine Occult Blood MODERATE (NEGATIVE) H 10/30/22 17:50 Urine Nitrite NEGATIVE (NEGATIVE) 10/30/22 17:50 Urine Bilirubin NEGATIVE (NEGATIVE) 10/30/22 17:50 Urine Urobilinogen 0.2 (NORMAL) E.U./dL (NORMAL) 10/30/22 17:50 Ur Leukocyte Esterase NEGATIVE (NEGATIVE) 10/30/22 17:50 Urine RBC 0-5 /HPF (0-5) 10/30/22 17:50 Urine WBC 0-3 /HPF (0-3) 10/30/22 17:50 Ur Squamous Epith Cells NONE SEEN (<= Few) 10/30/22 17:50 Urine Bacteria None Seen /HPF (None Seen) 10/30/22 17:50 Urine Casts 3-5 Hyaline Casts /LPF 10/30/22 17:50 Urine Mucus Few Strands 10/30/22 17:50 Ur Microscopic Review INDICATED 10/30/22 17:50 Urine Culture Comments NOT INDICATED 10/30/22 17:50 Salicylates < 6.0 mg/dL 10/30/22 15:44 Urine Opiates Screen NEGATIVE (NEGATIVE) 10/30/22 17:50 Ur Oxycodone Screen NEGATIVE (NEGATIVE) 10/30/22 17:50 Urine Methadone Screen NEGATIVE (NEGATIVE) 10/30/22 17:50 Ur Propoxyphene Screen NEGATIVE (NEGATIVE) 10/30/22 17:50 Acetaminophen < 10 ug/mL (10-30) L 10/30/22 15:44 Ur Barbiturates Screen NEGATIVE (NEGATIVE) 10/30/22 17:50 Ur Tricyclics Screen NEGATIVE (NEGATIVE) 10/30/22 17:50 Ur Phencyclidine Scrn NEGATIVE (NEGATIVE) 10/30/22 17:50 Ur Amphetamine Screen NEGATIVE (NEGATIVE) 10/30/22 17:50 U Methamphetamines Scrn NEGATIVE (NEGATIVE) 10/30/22 17:50 U Benzodiazepines Scrn NEGATIVE (NEGATIVE) 10/30/22 17:50 Urine Cocaine Screen NEGATIVE (NEGATIVE) 10/30/22 17:50 U Cannabinoids Screen NEGATIVE (NEGATIVE) 10/30/22 17:50 Ethyl Alcohol < 5.0 mg/dL 10/30/22 15:44 SARS-CoV-2 (PCR) NOT DETECTED 10/30/22 15:50
[2022-11-01] MEDS: LATANOPROST 0.005% OPHTH DROPS EACHEYE SCH (21:14)
[2022-11-02] MEDS ORDERED: hydrALAZINE 10 MG TABLET PO PRN (03:12)
[2022-11-02 05:15] LABS: CALCIUM 8.6 mg/dL (8.5-10.3); CREATININE 0.5 mg/dL (0.6-1.2); POTASSIUM 3.4 mmol/L (3.5-5.0)
--- NOTE | 2022-11-02 07:46 | Discharge Plan ---
Discharge Plan Problem Reviewed?: Yes Disposition: Home Health Service Condition: Fair Prescriptions: Multivit-Min/Iron/Folic Acid/K [Multi-Day Plus Minerals Tablet] 1 each PO DAILY #30 tablet amLODIPine [Norvasc] 2.5 mg PO 0800 #30 tab Diet: Regular Activity Restrictions: Activity as Tolerated Shower Restrictions: No Driving Restrictions: Yes (Due to blindness) Assistance Devices: Walker, Cane Weight Bearing: Full Weight Instruction Topics: Hygiene Personal Basics Health Concerns: You were hospitalized because of falling (twice) that caused muscle breakdown and a condition called Rhabdomyolysis, which can, if not treated, cause kidney failure. You needed IV fluids for several days to flush out the muscle breakdown products. You did have mild kidney abnormalities at admission, these have now resolved. Your overall hygiene is very poor. Because you had no running water and rarely took a bath or shower, you have multiple areas on your body with dirt, scratches, skin tears or skin breakdown. You need better hygiene, now with assistance from a caregiver, due to your blindness, and need better nutrition. A multivitamin daily has been prescribed for you to now take daily. We found that you have hypertension. You are now prescribed a morning tablet of Amlodipine to control your blood pressure. You need more help with your physical activity and activities of daily living. A referral has been sent to a Home Health agency to send to the home, an RN to check your blood pressure and overall condition, a bath aide (to help Nubia), a Physical Therapist, and Occupational Therapist, to do exercise therapy at home, and a Ep Tech to help determine where you will go after staying with Nubia. Returning back to a home that has a mud floor, and no heat or running water, is not advised. You need to get medical care going forward, by establishing with a Primary Care Provider. A list of providers has been given to Nubia, if you need to get a new PCP. It would be advised that you also see a Insurance Rater because of the poor condition of your toes. Plan of Treatment: As above. Care Goals: Improvement in symptoms and stabilization are the goals. Assessment: These instructions are provided to you and Nubia, your caregiver, as a reminder. Additional Instructions or Follow Up instructions: If you have any new or worsening symptoms, call your PCP for advice, or come to the ER. No Smoking: If you smoke, Please STOP! Call for help.
--- NOTE | 2022-11-02 07:59 | DISCHARGE SUMMARY ---
Discharge Summary Admit Date: 10/29/22 Discharge Date: 11/02/22 Discharging Provider: Dr Aleja Weber Primary Care Provider: None Condition at Discharge: Fair Discharge Disposition: Home Health Service - [facility] History of Present Illness: This is a 72-year-old male who has a history of being legally blind, he lives in a cabin since 1984 and drinks alejandro and has a wood-burning stove for heat. He has a caregiver who comes daily, she is now his DPOA, as well. He went out of the house off the porch (which she is not supposed to do because firewood is right on his porch), to get firewood from a newly fallen tree. He tripped and fell. He could not find his way home and was crawling around the cabin on hands and knees, hoping to "run into his front porch". He got lost and slept outside overnight (early October weather). His caregiver Nubia found him outside the next day and brought him to the ER and they found him to be hypothermic down to 34.8 degrees C. He was rewarmed in the ER and he was able to be discharged. He was taken home by the caregiver and she settled him in. The next day when she found him in the morning, he had fallen out of his couch which is his bed, was too weak to get up, was confused and speaking gibberish. She made a video of how she found him and the condition of his cabin. The video also shows cracked mud (and feces?) caked onto the carpeted floor, strewn garbage and clothes. He was brought in to the ED again. This time he is not hypothermic, his vital signs are stable. But he is confused, he thinks he is in [place] and that it is 2023. His labs came back showing CK 3380, mild pre-renal azotemia and his CT head and neck were scanned and no trauma or acute abnormality seen. The ED provider reached out to the Hospitalist Team, and we discussed his case. The patient will be placed in Observation status for maldonado ting rhabdomyolysis, mild volume depletion and altered mental status. We will also evaluate him for causes of probable syncope. Because the patient is confused, he cannot make medical decisions, therefore his CODE STATUS by default will be Full Code. - HOSPITAL COURSE Hospital Course: (1) Rhabdomyolysis M62.82 Related to being found down on the ground 2 days in a row. He was started on iv saline. His CK decreased from 3380 to 1500, to 220 on the day of discharge. (2) Pre-renal azotemia BUN/creat at admission were 36/0.9, and after iv hydration for 3 days, at time of discharge were 11/0.5. (3) AMS (altered mental status) Cause for his confusion was possibly drowsiness from sleep meds (he takes Tylenol PM every night), or from hypotension and hypoperfusion caused by dehydration. There was no source of an infection found as the cause of his confusion and drug screen was negative. We stopped his Tylenol with Benadryl sleeping med and he was discharged with instructions not to use that. (4) Fall at home We ordered evaluation for causes of syncope: His orthostatic vital signs were stable, monitoring on telemetry showed no dysrhythmias. PT found him to be very unstable when walking although he was able to improve balance using a walker. I suspect the fall occurred from his blindness and being too weak and sleepy or confused (poss from Tylenol pm use). He was advised that he needs more caregivers and more PT and OT. He was discharged to the home of his caregiver and ALEJANDRO Delacruz and a referral was sent from home health to provide RN, bath aide, PT, OT, social services counselor. (5) Legally blind This is from glaucoma. Eye glasses helped a bit but he lost his glasses. (6) Glaucoma We continued his eye drops (7) Poor personal hygiene (R46.0) The caregiver Nubia provided his story. Patient has lived in an unfinished one- room cabin home since 1984, at his choice. It has no forced-air heat, it is heated with a wood-burning stove. It has no running water. He used an outdoor latrine, but she has brought him an indoor bedside commode (which he uses over the last 2 years, since she has known him). He keeps his boots on all the time, he never takes them off, he sleeps with them. He only showers about once a month. Once when he was taking a shower with the boots off, she saw how bad his toes and feet are and one of the toenails just fell off in the shower. He has multiple excoriations on his hands, bruises in different stages of healing, dirt under his fingernails, dried dirt on his scalp and is poorly kempt. He has the interior of his one-room cabin "memorized" and he can maneuver in it, even being legally blind. But he is not supposed to wander outside in the surrounding [place]. The video she showed me shows that the house has [id number] caked mud and feces on top of a previously carpeted floor. There are old bottles, and other garbage strewn across the floor. His clothes and blankets are draped everywhere. He sleeps on his couch, has refused to use a bed she brought him. He cooks the same meal for himself every 2-3 days on his wood-burning stove. He underwent a cognitive eval done by OT and he scored very well. He was bathed and showered and I discussed importance of better cleanliness with pt. He was discharged to the home of his caregiver and ALEJANDRO Delacruz and a referral was sent for Home Health to provide RN, bath aide, PT, OT, and social services counselor. (8) HTN His blood pressure was consistently 150-1 0 systolic. He was started on amlodipine 2.5 mg daily and discharged with this new prescription. - ALLERGIES Allergies/Adverse Reactions: Allergies Allergy/AdvReac Type Severity Reaction Status Date / Time No Known Drug Allergies Allergy Verified 10/30/22 15:05 - MEDICATIONS Home Medications: Ambulatory Orders Medication Instructions Recorded Confirmed Latanoprost 0.005% Ophth Drops 1 drops EACHEYE HS 10/31/22 10/31/22 [Xalatan Ophth Drops] Acetaminophen [Tylenol] 650 mg PO Q4HR PRN tab 11/02/22 Multivit-Min/Iron/Folic Acid/K 1 each PO DAILY #30 tablet 11/02/22 [Multi-Day Plus Minerals Tablet] amLODIPine [Norvasc] 2.5 mg PO 0800 #30 tab 11/02/22 - PHYSICAL EXAM AT DISCHARGE General Appearance: positive: No acute distress, Alert, Other (Male pattern baldness, disheveled) Eyes Bilateral: positive: Other (Legally blind, has thick cataracts (and glaucoma)) ENT: positive: ENT inspection nml, No signs of dehydration Neck: positive: Nml inspection, No JVD Respiratory: positive: No respiratory distress Cardiovascular: positive: Regular rate & rhythm, No murmur Abdomen: positive: Non-tender, Nml bowel sounds, No distention Skin: positive: Warm, Dry Extremities: positive: Non-tender, No pedal edema, Other (Numerous, multiple small excoriations of his hands, a few on arms. Scaly thick skin of feet and dirt under nails.) Neurologic/Psychiatric: positive: Oriented x3, Motor nml, Other (Legally blind) - LABS Result Diagrams: 10/31/22 07:16 11/02/22 04:48 - DIAGNOSTIC IMAGING Diagnostic Imaging Results: Final report reviewed - FOLLOW UP Follow Up: Patient needs to establish with a PCP and have a hospital follow-up visit in the next 1 to 3 weeks. A podiatry appointment was encouraged. - TIME SPENT Time Spent in Discharge (Minutes): 45
[2022-11-02] MEDS: SODIUM CHLORIDE FLUSH 0.9% 10 ML SYRINGE IVP SCH (08:00)
[2022-11-02] MEDS ORDERED: amLODIPine 5 MG TABLET PO SCH (08:00)
[2022-11-02] MEDS: PRENATAL VITAMIN TABLET PO SCH (08:00)
[2022-11-02 10:16] VITALS: BP 157/65
== END 2022-11-02 10:21 | disposition home health service (06) ==
LOC: EDUNIT# → ED 14:45 → MS2 17:11
PROVIDERS: ADMIT Internal Medicine; ATTEND Internal Medicine
DX: M62.82 Rhabdomyolysis (principal); G93.41 Metabolic encephalopathy; H54.8 Legal blindness, as defined in USA; H40.9 Unspecified glaucoma; R46.0 Very low level of personal hygiene; W01.0XXA Fall on same level from slipping, tripping and stumbling without subsequent striking against object, initial encounter; Z59.01 Sheltered homelessness; Z20.822 Contact with and (suspected) exposure to COVID-19; I10 Essential (primary) hypertension
CPT/HCPCS: 36415; 70450; 72125; 80048; 80053; 80306; 80307; 81001; 82550; 83690; 83735; 84100; 84443; 85025; 87635; 96360; 96361; 97163; 97166; 99285; A9270; G0378; G0480; 80320; 80329; 81003; 87086

== ENCOUNTER 2023-05-28 08:33 | Outpatient (CLI) | payer MEDICARE, MEDICAID ==
[2023-05-28 15:32] LABS: BASOPHILS # (AUTO) 0.1 10^3/uL (0.0-0.1); EOSINOPHILS # (AUTO) 0.1 10^3/uL (0.0-0.7); EOSINOPHILS % (AUTO) 2.8 %; HCT - HEMATOCRIT 42.2 % (42.0-52.0); HGB - HEMOGLOBIN 13.7 g/dL (14.0-18.0); LYMPHOCYTES # (AUTO) 1.9 10^3/uL (1.5-3.5); LYMPHOCYTES % (AUTO) 40.3 %; MEAN CORPUSCULAR HEMOGLOBIN 30.8 pg (27.0-31.0); MEAN CORPUSCULAR HGB CONC 32.5 g/dL (32.0-36.0); MEAN CORPUSCULAR VOLUME 94.8 fL (80.0-94.0); MEAN PLATELET VOLUME 11.2 fL (7.4-11.4); MONOCYTES # (AUTO) 0.7 10^3/uL (0.0-1.0); MONOCYTES % (AUTO) 14.1 %; NEUTROPHILS # (AUTO) 1.9 10^3/uL (1.5-6.6); NEUTROPHILS % (AUTO) 40.6 %; PLT - PLATELET COUNT 205 10^3/uL (130-450); RED BLOOD COUNT 4.45 10^6/uL (4.70-6.10); RED CELL DISTRIBUTION WIDTH 13.3 % (12.0-15.0); WHITE BLOOD COUNT 4.6 x10^3/uL (4.8-10.8)
[2023-05-28 15:56] LABS: ALBUMIN 4.3 g/dL (3.2-5.5); ALBUMIN/GLOBULIN RATIO 1.4 (1.0-2.2); BILIRUBIN,TOTAL 1.1 mg/dL (0.2-1.0); CALCIUM 9.7 mg/dL (8.5-10.3); CREATININE 0.8 mg/dL (0.6-1.3); POTASSIUM 4.2 mmol/L (3.5-4.5); TOTAL PROTEIN 7.3 g/dL (6.4-8.9)
[2023-05-28 19:47] LABS: ESTIMATED AVERAGE GLUCOSE 108 mg/dL (70-100); HEMOGLOBIN A1c% 5.4 % (4.27-6.07)
== END 2023-05-28 08:34 | disposition home or self-care (01) ==
LOC: LAB.S 08:33
PROVIDERS: ATTEND Physician Assistant Medical
DX: B35.1 Tinea unguium (principal); N40.1 Benign prostatic hyperplasia with lower urinary tract symptoms; N13.8 Other obstructive and reflux uropathy; I10 Essential (primary) hypertension
CPT/HCPCS: 36415; 80053; 83036; 84153; 85025

== ENCOUNTER 2023-07-01 18:23 | Outpatient (CLI) | payer MEDICARE, MEDICAID | END 2023-07-01 18:24 | disposition critical access hospital (66) | LOC: EMS 18:23 | DX: R07.1 Chest pain on breathing (principal); R09.89 Other specified symptoms and signs involving the circulatory and respiratory systems; R42 Dizziness and giddiness; R23.1 Pallor; R06.89 Other abnormalities of breathing | CPT/HCPCS: A0425; A0429 ==

== ENCOUNTER 2023-07-01 18:49 | Emergency (ER) | payer MEDICARE, MEDICAID ==
[2023-07-01 19:52] LABS: BASOPHILS # (AUTO) 0.1 10^3/uL (0.0-0.1); BASOPHILS % (AUTO) 1.7 %; EOSINOPHILS # (AUTO) 0.1 10^3/uL (0.0-0.7); EOSINOPHILS % (AUTO) 1.5 %; HCT - HEMATOCRIT 40.5 % (42.0-52.0); HGB - HEMOGLOBIN 12.9 g/dL (14.0-18.0); LYMPHOCYTES # (AUTO) 1.6 10^3/uL (1.5-3.5); LYMPHOCYTES % (AUTO) 26.6 %; MEAN CORPUSCULAR HEMOGLOBIN 29.9 pg (27.0-31.0); MEAN CORPUSCULAR HGB CONC 31.9 g/dL (32.0-36.0); MEAN PLATELET VOLUME 10.4 fL (7.4-11.4); MONOCYTES # (AUTO) 0.8 10^3/uL (0.0-1.0); MONOCYTES % (AUTO) 13.5 %; NEUTROPHILS # (AUTO) 3.3 10^3/uL (1.5-6.6); NEUTROPHILS % (AUTO) 56.5 %; PLT - PLATELET COUNT 177 10^3/uL (130-450); RED BLOOD COUNT 4.31 10^6/uL (4.70-6.10); RED CELL DISTRIBUTION WIDTH 13.5 % (12.0-15.0); WHITE BLOOD COUNT 5.9 x10^3/uL (4.8-10.8)
[2023-07-01 20:15] LABS: TROPONIN I HIGH SENSITIVITY 7.3 ng/L (2.3-19.7)
[2023-07-01 20:21] LABS: ALBUMIN 4.2 g/dL (3.2-5.5); ALBUMIN/GLOBULIN RATIO 1.4 (1.0-2.2); BILIRUBIN,TOTAL 0.9 mg/dL (0.2-1.0); CALCIUM 9.4 mg/dL (8.5-10.3); CREATININE 0.7 mg/dL (0.6-1.3); POTASSIUM 3.9 mmol/L (3.5-4.5); TOTAL PROTEIN 7.2 g/dL (6.4-8.9)
[2023-07-01] MEDS ORDERED: MECLIZINE 12.5 MG TABLET PO STA (20:53)
--- NOTE | 2023-07-01 20:56 | ED Physician Documentation ---
History of Present Illness - Stated complaint Stated Complaint: DIZZY - Chief complaint Chief Complaint: Neuro - History obtained from History obtained from: Patient - Additonal information Additional information: HPI from patient. Patient complains of 3 days of episodic dizziness associate with nausea but no vomiting. He says the dizziness is worse in the mornings, and is distinctly brought on with head movement, particularly with sitting up from a lying down position, or sitting forward from a sitting upright position. He says he then has sensation of room spinning vertically around him. The symptoms radha if he lies still and keeps his head still. Denies history of similar symptoms. He says he also has had 2 to 3 days of chest congestion, mild, nonproductive cough. Denies fever, denies headache, denies head injury. BIBA. FSBS 140 by EMS. Review of Systems Constitutional: denies: Fever, Chills, Sweats Cardiac: reports: Reviewed and negative Respiratory: reports: Cough. denies: Dyspnea, Wheezing GI: reports: Nausea. denies: Abdominal Pain, Vomiting Neurologic: denies: Generalized weakness, Focal weakness, Numbness, Confused, Altered mental status, Headache, Head injury PD PAST MEDICAL HISTORY - Past Medical History Past Medical History: Yes Cardiovascular: None Respiratory: None Neuro: Other Endocrine/Autoimmune: None GI: None : None HEENT: Other Psych: None Musculoskeletal: None Derm: None Other Past Medical History: Polio with left sided deficits - Past Surgical History Past Surgical History: Yes - Present Medications Home Medications: Ambulatory Orders Medication Instructions Recorded Confirmed Latanoprost 0.005% Ophth Drops 1 drops EACHEYE HS 10/31/22 10/31/22 [Xalatan Ophth Drops] Acetaminophen [Tylenol] 650 mg PO Q4HR PRN tab 11/02/22 Multivit-Min/Iron/Folic Acid/K 1 each PO DAILY #30 tablet 11/02/22 [Multi-Day Plus Minerals Tablet] amLODIPine [Norvasc] 2.5 mg PO 0800 #30 tab 11/02/22 Meclizine HCl 25 mg PO Q6HR PRN #20 tab 07/01/23 - Allergies Allergies/Adverse Reactions: Allergies Allergy/AdvReac Type Severity Reaction Status Date / Time No Known Drug Allergies Allergy Verified 07/01/23 19:33 - Social History Does the pt smoke?: No Smoking Status: Never smoker Does the pt have substance abuse?: No - Immunizations Immunizations are current?: No PD ED PE NORMAL - Vitals Vital signs reviewed: Yes - General General: Alert and oriented X 3, No acute distress, Well developed/nourished - HEENT HEENT: Atraumatic, PERRL, EOMI, Moist mucous membranes - Neck Neck: Supple, no meningeal sign - Cardiac Cardiac: RRR - Respiratory Respiratory: No respiratory distress, Clear bilaterally - Abdomen Abdomen: Soft, Non tender - Derm Derm: Normal color, Warm and dry - Neuro Neuro: Alert and oriented X 3, unemployment claims adjudicator 2-12 intact, Normal speech Eye Opening: Spontaneous Motor: Obeys Commands Verbal: Oriented GCS Score: 15 PD ED PE EXPANDED - Extremities Extremities: Other (LUE/LLE weakness (chronic due to ALS)) Results - Vitals Vitals: Vital Signs - 24 hr 07/01/23 07/01/23 07/01/23 19:00 19:33 21:33 Temperature 36.5 C 36.5 C 36.8 C Heart Rate 67 67 68 Respiratory 16 16 16 Rate Blood Pressure 164/79 H 164/79 H 144/73 H O2 Saturation 96 96 97 07/01/23 23:00 Temperature 36.8 C Heart Rate 66 Respiratory 16 Rate Blood Pressure 138/72 H O2 Saturation 98 Oxygen O2 Source Room air - Labs Labs: Laboratory Tests 07/01/23 07/01/23 19:39 19:39 WBC 5.9 RBC 4.31 L Hgb 12.9 L Hct 40.5 L MCV 94.0 MCH 29.9 MCHC 31.9 L RDW 13.5 Plt Count 177 MPV 10.4 Neut # (Auto) 3.3 Lymph # (Auto) 1.6 [place] # (Auto) 0.8 Eos # (Auto) 0.1 Baso # (Auto) 0.1 Absolute Nucleated RBC 0.00 Nucleated RBC % 0.0 Sodium 138 Potassium 3.9 Chloride 102 Carbon Dioxide 28 Anion Gap 8.0 BUN 13 Creatinine 0.7 Estimated GFR (MDRD) 110 Glucose 106 H Calcium 9.4 Total Bilirubin 0.9 AST 14 ALT 10 Alkaline Phosphatase 69 Troponin I High Sens 7.3 Total Protein 7.2 Albumin 4.2 Globulin 3.0 Albumin/Globulin Ratio 1.4 Lipase 10 L - Rads (name of study) cxr Relevant Findings:: Prelim report reviewed, See rad report CTH Relevant Findings:: Prelim report reviewed, See rad report PD Medical Decision Making - ED course Complexity details: reviewed results, re-evaluated patient, considered differential, d/w patient ED course: Patient presents with symptom description that is consistent with peripheral vertigo. The sudden onset, episodic nature, distinct exacerbation with certain head movements, and the improvement/resolution with rest all suggest benign peripheral vertigo. However, given his chest complaints, and advanced age and complex underlying medical history, a work-up is undertaken to investigate other potential causes of this dizziness (such as electrolyte abnormality, anemia, ICH/intracranial mass). He has an unremarkable CBC, normal ER abdominal panel (blood sugars flagged as high but is only 106). Chest x-ray shows cardiomegaly but no other concerning/acute findings. He is given 25 mg of meclizine p.o. CT head is without acute/concerning findings. I reevaluated the patient, discussed the test results with him. He is reporting feeling much improved after having received the meclizine. He is comfortable with discharge at this time. We discussed return precautions. I electronically submitted a prescription for meclizine to his pharmacy of choice. Departure - Departure Disposition: 01 Home, Self Care Clinical Impression: Vertigo Condition: Good Instructions: ED Vertigo Unspecified Prescriptions: Meclizine HCl 25 mg PO Q6HR PRN #20 tab PRN Reason: Vertigo Comments: There were no concerning nor diagnostic findings on tonight's test, including the blood test, chest x-ray, and the CT scan of your head. As we discussed, your symptom description is suggestive of vertigo. Although there are a few different potential causes of vertigo, they are almost always benign causes. The normal CT scan of your head makes a rare, concerning cause very unlikely (such as a brain mass). You were given a dose of an anti-vertigo medication in the emergency department (meclizine), and I am electronically submitting a prescription for this medication to the [facility] pharmacy in [place]. Follow-up with your primary care provider in 3 to 5 days if the symptoms have not completely resolved. Forms: PCP List
--- NOTE | 2023-07-01 21:44 | XRAY Report ---
PROCEDURE: Chest 1 View X-Ray INDICATIONS: Chest pain TECHNIQUE: One view of the chest was acquired. COMPARISON: None. FINDINGS: Surgical changes and devices: None. Lungs and pleura: No pleural effusions or pneumothorax. Mild pulmonary vascular congestion is seen. No definite focal infiltrate. Mediastinum: Mediastinal contours appear normal. Heart size is enlarged. Bones and chest wall: No suspicious bony lesions. Overlying soft tissues appear unremarkable. IMPRESSION: Cardiomegaly and mild congestion. No definite focal infiltrate. No pleural effusion or pn eumothorax. Reviewed by: Dewey Rizo MD on 07/01/2023 9:42 PM PST Approved by: Dewey Rizo MD on 07/01/2023 9:42 PM [facility] Station ID: [id number]
--- NOTE | 2023-07-01 22:46 | CT Report ---
PROCEDURE: HEAD WO INDICATIONS: vertigo, WEATHERS TECHNIQUE: Noncontrast 4.5 mm thick angled axial sections acquired from the foramen magnum to the vertex. For r adiation dose reduction, the following was used: automated exposure control, adjustment of mA and/or kV according to patient size. COMPARISON: 10/30/2022 FINDINGS: Image quality: Excellent. CSF spaces: Basal cisterns are patent. No extra-axial fluid collections. The ventricles are symmet blessing in size and shape. Brain: No intracranial bleeds or masses. There is cerebral volume loss for age, with resultant vent ricular and sulcal prominence. There are periventricular and deep white matter chronic small vessel ischemic changes. There is intracranial internal carotid artery atherosclerosis. Skull and face: Calvarium and visualized facial bones appear intact, without suspicious lesions. Sinuses: Visualized sinuses and mastoids are clear. IMPRESSION: No acute intracranial abnormalities. No significant changes from previous study. Reviewed by: Dewey Adame MD on 07/01/2023 10:45 PM PST Approved by: Dewey Adame MD on 07/01/2023 10:45 PM PST Station ID: [id number]
[2023-07-01 23:34] VITALS: BP 138/72; O2SAT 98
== END 2023-07-01 23:28 | disposition home or self-care (01) ==
LOC: EDUNIT# → ED 18:49
DX: R42 Dizziness and giddiness (principal); Z79.899 Other long term (current) drug therapy
CPT/HCPCS: 36415; 70450; 71045; 80053; 83690; 84484; 85025; 99284; A9270

== ENCOUNTER 2023-08-30 14:25 | Outpatient (CLI) | payer MEDICARE, MEDICAID ==
[2023-08-30 14:43] LABS: BASOPHILS # (AUTO) 0.1 10^3/uL (0.0-0.1); BASOPHILS % (AUTO) 1.5 %; EOSINOPHILS # (AUTO) 0.1 10^3/uL (0.0-0.7); EOSINOPHILS % (AUTO) 2.8 %; LYMPHOCYTES % (AUTO) 21.1 %; MEAN CORPUSCULAR HEMOGLOBIN 29.9 pg (27.0-31.0); MEAN CORPUSCULAR HGB CONC 32.5 g/dL (32.0-36.0); MEAN PLATELET VOLUME 10.5 fL (7.4-11.4); MONOCYTES # (AUTO) 0.5 10^3/uL (0.0-1.0); MONOCYTES % (AUTO) 10.2 %; NEUTROPHILS % (AUTO) 64.2 %; PLT - PLATELET COUNT 214 10^3/uL (130-450); RED BLOOD COUNT 4.35 10^6/uL (4.70-6.10); RED CELL DISTRIBUTION WIDTH 14.3 % (12.0-15.0); WHITE BLOOD COUNT 4.7 x10^3/uL (4.8-10.8)
[2023-08-30 15:11] LABS: ALBUMIN 4.4 g/dL (3.2-5.5); ALBUMIN/GLOBULIN RATIO 1.5 (1.0-2.2); BILIRUBIN,TOTAL 1.1 mg/dL (0.2-1.0); CALCIUM 9.7 mg/dL (8.5-10.3); CREATININE 0.8 mg/dL (0.6-1.3); POTASSIUM 4.3 mmol/L (3.5-4.5); TOTAL PROTEIN 7.4 g/dL (6.4-8.9)
== END 2023-08-30 14:26 | disposition home or self-care (01) ==
LOC: LAB 14:25
PROVIDERS: ATTEND Urology
DX: I10 Essential (primary) hypertension (principal); R97.20 Elevated prostate specific antigen [PSA]
CPT/HCPCS: 36415; 80053; 84153; 85025

== ENCOUNTER 2023-10-02 15:56 | Outpatient (CLI) | payer MEDICARE, MEDICAID ==
[~2023-10-02 15:56] MED LIST: GADOTERATE MEGLUMINE 10 MMOL/20 ML VIAL ONE
[2023-10-02] MEDS: GADOTERATE MEGLUMINE 10 MMOL/20 ML VIAL IVP ONE (18:49)
--- NOTE | 2023-10-03 10:30 | MRI Report ---
PROCEDURE: Pelvis W/WO INDICATIONS: ELEVATED PSA CONTRAST: clariscan 19.2ml TECHNIQUE: Coronal ultra fast SE, axial T1 FSE with fat saturation, 3-plane nonbreath-hold T2 FSE. After the ad ministration of contrast, dynamic axial, delayed axial and coronal ultra fast GE or 2-D spoiled GE wi th fat saturation through the pelvis. Optional diffusion weighted imaging and ADC may be performed. COMPARISON: None. FINDINGS: Image quality: Diffusion weighted and dynamic contrast enhanced images are diagnostic. Prostate: Gland size is 4.5 x 3.8 x 3.7 cm; ellipsoid gland volume is 33 mL. Prostate lesions: Lesion 1: Location: [Peripheral zone, mid gland. This is best seen on axial series 6, image 9 and coronal series 7, image 15. Size: 2.5 x 2.0 cm. T2W signal: Circumscribed, homogenous moderate hypointense focus not confined to prostate (PI-RADS 5) . DWI signal: Markedly hyperintense signal (PI-RADS 4-5). ADC signal: Markedly hypointense signal (PI-RADS 4-5). Enhancement: Yes Extracapsular extension: Yes. Suspected neurovascular involvement. No seminal vesicle involvement. PI-RADS score: 5 Lesion 2: Location: Right anterior transition zone, mid gland. This is best seen on axial series 6, image 12. Size: 1.8 x 1.0 cm T2W signal: Lenticular or non-circumscribed, homogeneous, moderately hypointense (PI-RADS 4 or 5). DWI signal: Markedly hyperintense signal (PI-RADS 4-5). ADC signal: Markedly hypointense signal (PI-RADS 4-5). Enhancement: Yes Extracapsular extension: No. No neurovascular involvement. No seminal vesicle involvement. PI-RADS score: 5 Genitourinary system: Trabeculated bladder wall. Nondistended ureters. Bowel and peritoneum: No pathologic free pelvic fluid. Inferior colon and small bowel loops are nor mal in caliber. Nodes and vessels: Enlarged left external iliac chain node measuring 1.2 cm short axis (series 22, i mage 25). Soft tissues: No inguinal hernias. Bones: Restricted diffusion in the right anterior pubic bone, with mild enhancement. IMPRESSION: Two PI-RADS 5 lesions, as above. Lesion 1 demonstrates extraprostatic extension and likely invasion i n the neurovascular bundle. Suspicious left external iliac chain node. Restricted diffusion in the right anterior pubic bone, with mild enhancement, suspicious for osseous metastatic disease. Correlate with bone scintigraphy. Reviewed by: Antony Fuentes MD on 10/03/2023 10:29 AM [facility] Approved by: Antony Fuentes MD on 10/03/2023 10:29 AM [facility] Station ID: [id number]
== END 2023-10-02 15:57 | disposition home or self-care (01) ==
LOC: DI 15:56
PROVIDERS: ATTEND Urology
DX: R97.20 Elevated prostate specific antigen [PSA] (principal); N42.89 Other specified disorders of prostate; R59.0 Localized enlarged lymph nodes; R93.7 Abnormal findings on diagnostic imaging of other parts of musculoskeletal system
CPT/HCPCS: 72197; A9575

== ENCOUNTER 2023-11-25 11:41 | Day surgery (SDC) | payer MEDICARE, MEDICAID ==
[2023-11-25] MEDS: LACTATED RINGERS 1,000 ML IV ONE (11:55)
[2023-11-25] MEDS ORDERED: MIDAZOLAM 2 MG/2 ML VIAL ONE (13:51)
[2023-11-25] MEDS ORDERED: LIDOCAINE-MPF 2% 5 ML VIAL ONE (13:52)
[2023-11-25] MEDS ORDERED: PROPOFOL 200 MG/20 ML VIAL IVP ONE ×2 (13:52)
[2023-11-25] MEDS ORDERED: fentaNYL 100 MCG/2 ML VIAL ONE (13:52)
--- NOTE | 2023-11-25 14:06 | ANESTHESIA ---
Pre-Anesthesia VS, & Labs - Diagnosis ELEVATED PSA - Procedure PROSTATE BIOPSY Vital Signs: Temp Pulse Resp BP Pulse Ox O2 Flow Rate 36.7 C 54 L 16 160/71 H 99 11/25/23 12:10 11/25/23 12:10 11/25/23 12:10 11/25/23 12:10 11/25/23 12:10 Height: 6 ft 1 in Weight (kg): 95.25 kg Body Mass Index: 27.7 BMI Classification: Overweight - NPO Last Fluid Intake: 06 Last Food Intake: >8HR Home Medications and Allergies Home Medications: Ambulatory Orders Finasteride [Proscar] 5 mg PO DAILY 11/18/23 Tamsulosin [Flomax] 0.4 mg PO DAILY 11/18/23 amLODIPine [Norvasc] 5 mg PO DAILY 11/18/23 traZODone [Desyrel] 50 mg PO HS 11/18/23 Latanoprost 0.005% Ophth Drops [Xalatan Ophth Drops] 1 drops EACHEYE HS 10/31/22 Finasteride [Proscar] 5 mg PO DAILY 11/18/23 Tamsulosin [Flomax] 0.4 mg PO DAILY 11/18/23 amLODIPine [Norvasc] 5 mg PO DAILY 11/18/23 traZODone [Desyrel] 50 mg PO HS 11/18/23 Allergies/Adverse Reactions: Allergies Allergy/AdvReac Type Severity Reaction Status Date / Time No Known Drug Allergies Allergy Verified 11/25/23 12:22 Anes History & Medical History - Anesthetic History Anesthesia Complications: reports: No previous complications Family history of Anesthesia Complications: Denies - Medical History Cardiovascular: reports: Hypertension (UNSURE IF HE TOOK HIS AMLODIPINE, DENIES CHEST PAIN...SOB "WHEN EXHAUSTED") Pulmonary: reports: None Gastrointestinal: reports: None Urinary: reports: None, Benign prostate hypertrophy Neuro: reports: Other Musculoskeletal: reports: None Endocrine/Autoimmune: reports: None Skin: reports: None Smoking Status: Never smoker Psychosocial: reports: No issues indicated - Surgical History Eyes Ears Nose Throat (EENT): reports: Cataracts Results - EKG Results EKG Comparison: Reviewed EKG (SR) Exam General: Cooperative (SOMEWHAT SOMNULENT, PERHAPS A SOMEWHAT POOR HISTORIAN) Dental: Other (NO TEETH, ONE LEFT CANINE, NOT LOOSE) Mouth Openin Fingerbreadth Neck Mobility: Reduced Mallampati classification: III Thyromental Distance: 4-6 cm Plan Anesthesia Type: MAC, Total IV Consent for Procedure(s) Verified and Reviewed: Yes Code Status: Attempt Resuscitation ASA classification: 3-Severe systemic disease Is this case an emergency?: No
[2023-11-25] MEDS ORDERED: ONDANSETRON 4 MG/2 ML VIAL IVP PRN (14:13)
[2023-11-25] MEDS ORDERED: MORPHINE 2 MG/ML CARPUJECT IVP PRN (14:13)
[2023-11-25] MEDS ORDERED: HYDROmorphone 0.5 MG/0.5 ML SYRINGE IVP PRN (14:13)
[2023-11-25] MEDS ORDERED: ATROPINE ABBOJECT 1 MG/10 ML SYRINGE IVP PRN (14:13)
[2023-11-25] MEDS ORDERED: METOCLOPRAMIDE 10 MG/2 ML VIAL IVP PRN (14:13)
[2023-11-25] MEDS ORDERED: fentaNYL 100 MCG/2 ML VIAL IVP PRN (14:13)
[2023-11-25] MEDS ORDERED: LIDOCAINE-MPF 1% 30 ML VIAL ONE (14:13)
[2023-11-25] MEDS ORDERED: NALOXONE 0.4 MG/ML VIAL IVP PRN (14:13)
[2023-11-25] MEDS ORDERED: ePHEDrine 50 MG/ML VIAL IVP PRN (14:13)
[2023-11-25] MEDS: LIDOCAINE 1% 50 ML MDV SUBQ ONE (14:44)
--- NOTE | 2023-11-25 14:53 | Discharge Plan ---
Discharge Plan Problem Reviewed?: Yes Disposition: Home, Self Care Condition: Good Diet: Regular Activity Restrictions: No Restrictions Shower Restrictions: No Driving Restrictions: No Instruction Topics: Biopsy Ultrasound Transrectal Additional Instructions or Follow Up instructions: You will be contacted for follow-up in 2-[address] Niall Sanches Smoking: If you smoke, Please STOP! Call for help. Follow-up with: Zainab Maher PA [Primary Care Provider] -
--- NOTE | 2023-11-25 14:56 | OPERATIVE REPORT ---
Operative Report - General Procedure Date: 11/25/23 Planned Procedure: Transrectal ultrasound-guided prostate biopsy Pre-Op Diagnosis: Elevated PSA Procedure Performed: Transrectal ultrasound guided prostate biopsy Post Op Diagnosis: Elevated PSA - Procedure Note Primary Surgeon: Niall Anesthesia Provider: BRADLEY Jenkins Anesthesia Technique: Moderate sedation Pathology: Routine prostate biopsy samples Indications: 73-year-old male with complex medical issues with a recent PSA of 34 which is corrected to 68 with finasteride effect. He had an eye performed which showed 2 PI-RADS 5 lesions, 1 in the left peripheral zone mid gland and 1 in the right anterior transition zone mid gland, along with suspicious left iliac lymph node, and possible right anterior pubic bone osseous metastatic disease Findings: Routine prostate biopsy Complications: none - Other Other Information/Narrative: After informed consent was obtained the patient was brought to the OR and laid in the supine position. The patient was then anesthetized per anesthesia protocols and placed in the left lower cubitus position with left side down. A timeout was performed reconfirming the patient, procedure and laterality. A transrectal ultrasound-guided probe was placed per rectum and his prostate was visualized. 5 cc 1% lidocaine was placed at the lateral aspect of the prostate bilaterally. The prostate volume was measured Using 18-gauge biopsy needle we obtained samples of the prostate from the right and left side, the lateral and medial aspects of the base, mid and apex for a total of 12 samples. These were sent for analysis separately. Care was made to sample his PI-RADS lesions. With lesion 1 being caught in the left mid gland and lesion 2 in the right mid gland The probe was slowly removed and no bleeding was identified. The patient tolerated procedure well and was brought to the PACU without further incident. He will follow-up in a few weeks time for pathology discussion
[2023-11-25] MEDS ORDERED: LACTATED RINGERS 1,000 ML IV SCH (15:00)
--- NOTE | 2023-11-25 15:18 | ANESTHESIA POST OP EVALUATION ---
Anesthesia Post Eval - Post Anesthesia Eval Vitals: Last Vital Signs Temp 36.3 C L 11/25/23 15:12 Pulse 62 11/25/23 15:12 Resp 14 11/25/23 15:12 BP 136/63 H 11/25/23 15:12 Pulse Ox 96 11/25/23 15:12 O2 Flow Rate CV Function Including HR & BP: Stable Pain Control: Satisfactory Nausea & Vomiting: Negative Mental Status: Baseline Respiratory Status: Airway Patent Hydration Status: Satisfactory Anesthesia Complications: None
[2023-11-25 15:21] VITALS: BP 136/63; O2SAT 96
[2023-11-25] MEDS: LACTATED RINGERS 600 ML IV ONE (15:38)
== END 2023-11-25 11:42 | disposition home or self-care (01) ==
LOC: SDS 11:41
PROVIDERS: ATTEND Urology
PROC: 0VB07ZX Excision of Prostate, Via Natural or Artificial Opening, Diagnostic (ICD-10-PCS; principal; 2023-11-25 13:30)
DX: C61 Malignant neoplasm of prostate (principal); I10 Essential (primary) hypertension
CPT/HCPCS: 55700; 76942; J7120

== ENCOUNTER 2023-12-25 15:12 | Outpatient (CLI) | payer MEDICARE, MEDICAID ==
[2023-12-25] MEDS ORDERED: DIATRIZOATE MEGLU/DIATRIZO SOD 30 ML BOTTLE PO ONE (15:19)
[2023-12-25] MEDS ORDERED: iohexoL-300 100 ML VIAL ONE (15:19)
[2023-12-25 16:03] LABS: CREATININE 0.9 mg/dL (0.6-1.3)
[2023-12-25] MEDS: iohexoL-300 100 ML VIAL IVP ONE (17:23)
[2023-12-25] MEDS: DIATRIZOATE MEGLU/DIATRIZO SOD 30 ML BOTTLE PO ONE (17:24)
--- NOTE | 2023-12-25 18:17 | CT Report ---
PROCEDURE: Abdomen/Pelvis W INDICATIONS: PROSTATE CA CONTRAST: Omni 300 100ml TECHNIQUE: After the administration of intravenous contrast, a CT scan of the abdomen and pelvis was performed. Images were recorded and evaluated at appropriate window settings. Reformats: coronal and sagittal. F or radiation dose reduction, the following was used: automated exposure control, adjustment of mA and /or kV according to patient size. COMPARISON: None. FINDINGS: Image quality: Diagnostic. Lower chest: Anterior right hemidiaphragm eventration. No basal effusions nodules, or consolidations. Moderate coronary artery calcification. Liver: No solid mass. Gallbladder and biliary tree: Peripherally calcified gallstone near the neck gallbladder. No wall thi ckening. No biliary dilatation. Spleen: No splenomegaly. Pancreas: Normal. Adrenals: No adrenal nodule. Kidneys and ureters: Symmetric enhancement. No hydronephrosis or nephrolithiasis. No solid mass or cy st requiring follow-up. Normal ureters. Stomach, bowel and peritoneum: Stomach and small bowel are normal. Large quantity of solid rectal sto ol. No pathologic wall thickening. Normal appendix. The colon is redundant and contains mildly increa sed quantity of stool diffusely. No free fluid or free air. Lymph nodes: No central or retroperitoneal adenopathy. Vessels: Normal caliber abdominal aorta, IVC, and portal vein. Heavy atherosclerotic calcification of the aorta. PELVIS Reproductive organs: Mild prostatomegaly. Bladder: No abnormal wall thickening, accounting for underdistention. Pelvic lymph nodes: Left external iliac chain lymph node measures 1.2 cm short axis., Series 2 image 123. No other pelvic lymph nodes appear abnormal. Bones: Multilevel degenerative disc and endplate change. No suspicious bone lesion. Other: No significant ventral or inguinal hernia. IMPRESSION: Mild prostatomegaly and a single enlarged left external iliac chain lymph node. No other evidence of metastatic disease or adenopathy in the abdomen or pelvis. Rectal obstipation. Cholelithiasis. Reviewed by: Lucy Gardner MD on 12/25/2023 6:15 PM PDT Approved by: Lucy Gardner MD on 12/25/2023 6:15 PM PDT Station ID: [id number]
== END 2023-12-25 15:13 | disposition home or self-care (01) ==
LOC: LAB 15:12
PROVIDERS: ATTEND Urology
DX: C61 Malignant neoplasm of prostate (principal); N40.0 Benign prostatic hyperplasia without lower urinary tract symptoms; K59.00 Constipation, unspecified; Z90.49 Acquired absence of other specified parts of digestive tract
CPT/HCPCS: 36415; 74177; 82565; Q9963; Q9967